=== PATIENT | female | born 1990 | race Caucasian/White ===

== ENCOUNTER 2018-12-15 14:07 | Emergency (ER) | payer OTHER ==
[2018-12-15 14:21] VITALS: BP 105/94
[2018-12-15] MEDS ORDERED: IBUPROFEN 600 MG TAB PO ONE (15:15)
--- NOTE | 2018-12-15 15:32 | EDPHY ---
H & P Time Seen by Provider: 12/15/18 15:03 HPI/ROS: CHIEF COMPLAINT: Cough, cold symptoms, fever HISTORY OF PRESENT ILLNESS: Patient is a 28-year-old female with a history of PFO and mitral valve prolapse who presents emergency department ongoing cold symptoms. She states she got sick 1 and half to 2 weeks ago. She had mild congestion. She subsequently developed laryngitis and cough. Her cough has persisted. He was initially dry but now it seems more wet. She has mild shortness of breath. She has mild intermittent subjective fever. She has also had intermittent episodes of nonbloody diarrhea. She has no abdominal pain. She describes mild sore throat. She is able tolerate oral liquids and food. REVIEW OF SYSTEMS: 10 systems were reveiwed and are negative with the exception of the elements mentioned in the history of present illness. Past Medical/Surgical History: Includes PFO, mitral valve prolapse Social history: Patient does not smoke Smoking Status: Never smoked Physical Exam: Vitals noted. 37.6, 95% on room air GENERAL: Well-appearing, in no acute distress, alert. HEENT: Eyes normal to inspection, no signs of dehydration. Pharyngeal erythema. No lesions. No discharge. Uvula is midline. No asymmetry. NECK: Normal, supple. No stridor. RESPIRATORY: No respiratory distress. Clear to auscultation bilaterally, no rales, rhonchi or wheezing. Normal CVS: Regular rate and rhythm, no rubs, or gallops. Loud murmur noted. (Pt states this is baseline) ABDOMEN: Soft, nontender, nondistended, no organomegaly. BACK: Normal to inspection, no CVA tenderness. SKIN: Normal color, no rash, warm, dry. No pallor. EXTREMITIES: No pedal edema, no calf tenderness, no Homans sign or cords, no joint swelling. NEURO/PSYCH: Alert and oriented, normal mood and affect, normal motor sensory exam. Constitutional: Initial Vital Signs Temperature (C) 37.6 C 12/15/18 14:18 Heart Rate 94 12/15/18 14:18 Respiratory Rate 17 12/15/18 14:18 Blood Pressure 105/94 H 12/15/18 14:18 O2 Sat (%) 95 12/15/18 14:18 O2 Delivery Mode Room Air Allergies/Adverse Reactions: No Known Allergies Allergy (Verified 12/15/18 14:17) Home Medications: Medication Instructions Recorded Lexapro 03/24/15 Amoxicillin/Clavulanate Pot 875 mg PO BID 10 Days tab 12/15/18 [Augmentin 875 mg tab] Azithromycin 12/15/18 MIRENA 12/15/18 buPROPion 12/15/18 Medical Decision Making ED Course/Re-evaluation: In the emergency department I discussed possible etiologies with the patient. I answered all her questions. Patient will be given Augmentin orally. I discussed the potential of viral illness. Patient was given warnings prior to leaving. She will return with worsening symptoms. Differential Diagnosis: My differential includes but is not limited to pharyngitis, strep pharyngitis, peritonsillar abscess, retropharyngeal abscess, bronchitis, influenza, pneumonia , bacteremia, sepsis - Data Points Medications Given: Discontinued Medications Ibuprofen (Motrin) 600 mg PO EDNOW ONE Stop: 12/15/18 15:16 Last Admin: 12/15/18 15:18 Dose: 600 mg Departure - Departure Disposition: Home, Routine, Self-Care Clinical Impression: Viral syndrome Pharyngitis Qualifiers: Pharyngitis/tonsillitis etiology: unspecified etiology Qualified Code(s): J02.9 - Acute pharyngitis, unspecified Condition: Good Instructions: Acute Bronchitis (ED), Pharyngitis (ED) Additional Instructions: Care return with increasing fever, worsening cough, shortness of breath, chest pain or any other concerns. Take your entire course of antibiotics. Referrals: Yelena Man MD [Medical Doctor] - 5-7 days, call for appt. Prescriptions: Amoxicillin/Clavulanate Pot [Augmentin 875 mg tab] 875 mg PO BID 10 Days tab
== END 2018-12-15 15:40 | disposition home or self-care (01) ==
DX: B34.9 Viral infection, unspecified (principal)